=== PATIENT | male | born 1945 | race Caucasian/White ===

== ENCOUNTER 2022-04-05 16:31 | Emergency (ER) | payer MEDICARE, SELFPAY ==
--- NOTE | ~2022-04-05 | XR_ITS ---
EXAMINATION: XR CHEST CLINICAL INFORMATION: Dizziness COMPARISON: 09/13/2010 TECHNIQUE: 2 views of the chest were obtained. FINDINGS: Chronic interstitial opacity. Mild right base atelectasis. There is flattening of the diaphragms and increased retrosternal clear space on the lateral view suggesting emphysema. Normal heart size. Normal pulmonary vascularity. Multilevel degenerative changes of the thoracic spine. XR/XR chest 2V IMPRESSION: Right base atelectasis. No acute pulmonary disease.
--- NOTE | 2022-04-05 17:03 | ECG_ITS ---
Test Reason : DIZZINESS Blood Pressure : / mmHG Vent. Rate : 057 BPM Atrial Rate : 057 BPM P-R Int : 194 ms QRS Dur : 094 ms QT Int : 406 ms P-R-T Axes : 089 047 062 degrees QTc Int : 395 ms Sinus bradycardia Otherwise normal ECG No previous ECGs available Referred By: Generic ED Physician Electronically Signed By:MEI LOZOYA
[2022-04-05 17:11] VITALS: BP 156/66; PULSE 61; RESP 16; TEMP 37.2; O2SAT 95; BMI 24.8
[2022-04-05 17:25] LABS: MANUAL DIFF FLAG NO
[2022-04-05 17:28] LABS: Basophils Percent Auto 0.2 % (0-2); Eosinophils Absolute Auto 0.1 X10*3/uL (0.0-0.4); Eosinophils Percent Auto 1.2 % (0-4); Hematocrit 44.1 % (42.0-52.0); Hemoglobin 15.5 g/dl (14.0-18.0); Imm Gran Abs Auto 0.04 X10*3/uL (0.00-0.03); Imm Gran Pct Auto 0.5 % (0.0-0.4); Lymphocytes Absolute Auto 1.1 X10*3/uL (1.2-4.9); Lymphocytes Percent Auto 12.7 % (20-40); Mean Corpuscular HGB Conc 35.1 g/dl (31.0-36.0); Mean Corpuscular Hemoglobin 31.2 pg (27.0-33.0); Mean Corpuscular Volume 88.7 fL (80.0-98.0); Mean Platelet Volume 9.7 fL (9.4-12.4); Monocytes Absolute Auto 0.9 X10*3/uL (0.1-1.2); Monocytes Percent Auto 10.9 % (2-11); Neutrophils Absolute Auto 6.4 x10*3/uL (2.0-8.3); Neutrophils Percent Auto 74.5 % (45-73); Platelet Count 153 X10*3/uL (160-400); Red Blood Count 4.97 X10*6/uL (4.60-5.80); Red Cell Distribution Width 12.1 % (11.0-16.0); White Blood Count 8.6 X10*3/uL (4.8-10.8)
--- NOTE | 2022-04-05 17:29 | ED.GENADULT ---
HPI - General Adult General Chief complaint: Dizziness Stated complaint: low blood pressure, dizzy Time Seen by Provider: 04/05/22 17:29 Source: patient Mode of arrival: ambulatory Limitations: no limitations History of Present Illness HPI narrative: Patient is a 76 year old male presenting to the emergency department today with episodic dizziness and low sodium. Patient states that he was called and told by his PCPs office that his sodium was low and he should only take half of his diuretic medication. Patient states that he is having intermittent dizziness today and has only had 1 glass of tea to drink today. Patient states that he drinks 7-8 beers a day and has been feeling very anxious lately, looking up a lot of health things on his iPad. Patient denies any current dizziness, lightheadedness, abdominal pain, nausea, vomiting, fever, chills, blurry vision, double vision, loss of vision, chest pain, difficulty breathing, shortness of breath, back pain, night sweats, pain with urination, increased urinary frequency, increased urinary urgency, blood in his urine or stool, syncope or a near syncopal episode, recent trauma or falls, bowel incontinence, bladder incontinence, bowel retention, bladder retention, or any other complaints at this time. Onset (ago): hour(s) Severity: mild Severity scale (1-10): 1 Relieving factors: none Exacerbating factors: none Associated symptoms: denies other symptoms Treatments prior to arrival: none Related Data Previous Rx's Medication Instructions Recorded fluoxetine 10 mg capsule (Prozac) 10 mg PO DAILY #30 caps 04/05/22 Allergies Allergy/AdvReac Type Severity Reaction Status Date / Time No Known Allergies Allergy Unverified 05/02/20 15:44 Review of Systems Constitutional: Constitutional: Reports no additional constitutional complaints, Denies chills, Denies fever(s) and Denies night sweats Eyes: Eyes: Reports no additional eye complaints, Denies blurry vision, Denies change in vision, Denies diplopia, Denies eye discharge, Denies loss of vision and Denies eye pain ENT: Denies dizziness Cardiovascular: Cardiovascular: Reports no additional cardiovascular complaints, Denies chest pain, Denies lightheadedness, Denies Loss of Consciousness and Denies dyspnea Respiratory: Respiratory: Reports no additional respiratory complaints and Denies dyspnea Gastrointestinal: Gastrointestinal: Reports no additional gastrointestinal complaints, Denies abdominal pain, Denies melena, Denies hematochezia, Denies change in bowel habits and Denies change in stool character Genitourinary: Genitourinary: Reports no additional male genitourinary complaints, Denies hematuria, Denies oliguria, Denies difficulty urinating, Denies dysuria, Denies urinary frequency, Denies urinary hesitancy, Denies urinary incontinence and Denies urinary urgency Musculoskeletal: Musculoskeletal: Reports no additional musculoskeletal complaints, Denies numbness and Denies tingling Neurologic: Denies dizziness, Denies loss of vision, Denies numbness and Denies tingling Psychiatric: Psychiatric: Reports no additional psychiatric complaints and Reports anxiety Endocrine: Endocrine: Reports no additional endocrine complaints Hematologic/Lymphatic: Hematologic/Lymphatic: Reports no additional hematologic/lymphatic complaints Allergic/Immunologic: Allergic/Immunologic: Reports no additional allergic/immunologic complaints [facility] Past Medical History Attestation statement: The following information was validated with the patient. Source: old records reviewed Social History Social History Advance Directives: No Advance Directives Information Provided: No Physical Exam ED Vital Signs: Vital Signs - 24 hr 04/05/22 17:11 04/05/22 20:09 04/05/22 20:11 Temperature 98.9 F Pulse Rate 61 47 L 48 L Respiratory Rate 16 16 Blood Pressure 156/66 H 134/67 134/67 Pulse Oximetry 95 97 Oxygen Delivery Method Room Air Room Air 04/05/22 20:12 Temperature Pulse Rate 49 L Respiratory Rate Blood Pressure 149/69 H Pulse Oximetry Oxygen Delivery Method BMI result Body Mass Index 24.8 Const General: cooperative, no acute distress, alert and awake Nutritional Appearance: well nourished Orientation/consciousness: patient oriented x3 Limitations: no limitations [facility] Head: Yes normal to inspection and Yes atraumatic Ears: hearing grossly normal bilaterally and external ears normal General nose exam: Normal external nose present, no nasal discharge noted and no epistaxis Face and sinus: Yes normal facial exam, No abrasion and No laceration Mouth: Normal oral and palatal mucosa present, no drooling and no muffled voice Eyes General: appearance normal, both eyes and all related structures Periorbital: periorbital findings normal Eyelids: Yes eyelids normal Conjunctivae: conjunctivae normal Pupils: Equal, round and reactive pupils present EOM: EOMs intact bilaterally Neck Neck: Yes normal visual inspection, Yes full ROM and Yes no lymphadenopathy Chest Chest palpation & inspection: normal inspection of the chest Resp Effort & Inspection: normal respiratory effort and able to speak in complete sentences Auscultation: clear to auscultation bilaterally Cardio Rate: regular rate Rhythm: regular rhythm GI Inspection: Yes normal to inspection Neuro General: patient oriented x3 and moves all extremities Cranial nerves: Yes Equal, round and reactive pupils present Cognition (Neuro): normal cognition Motor exam (neuro): 5/5 motor strength present throughout Sensory Exam: Normal double simultaneous stimulation for sensation Coordination: [id number] test normal Extrem General: Yes normal to inspection, Yes full ROM and Yes capillary refill normal Psych Appearance: grossly normal Mental Status: mental status grossly normal Affect: Anxious affect present Attitude: cooperative Thought process: Normal thought process present Thought content: Normal thought content present Insight: Good insight present (Psych) Medical Decision Making MDM Narrative Medical decision making narrative: Patient is a 76 year old male presenting to the emergency department today with intermittent dizziness and low sodium. Patient's physical exam showed a fairly anxious individual but was otherwise unremarkable. Patient's blood work showed a decreased sodium of 129 but was otherwise unremarkable. Patient's urine showed no acute process. Patient's EKG was unremarkable. Patient's chest x-ray showed no acute process. I explained my physical exam findings as well as all test results to the patient and the patient's and daughter. I explained that the patient should continue taking his adjusted medications per his PCPs instructions. I explained that due to their concern and the patient's anxious clinical presentation, I will start him on a low dose SSRI anti-anxiety medication that his PCP can follow up with him on. I stressed the importance of the patient having increased electrolyte containing fluid intake.I answered all questions asked by the patient and the patient's and daughter. Patient received PO ativan and IV fluids which he stated helped his symptoms significantly. I stressed the importance of the patient taking his medication as prescribed. I stressed the importance of the patient following up with his primary care provider. I stressed the importance of the patient returning to the emergency department immediately if his symptoms were to worsen or if he were to develop any dizziness, shortness of breath, difficulty breathing, chest pain, blurry vision, loss of vision, nausea, vomiting, abdominal pain, fever, chills, back pain, or any other complaints. Patient and the patient's and daughter verbalized agreement and understanding with this treatment plan and discharge. Differential Diagnosis Differential Diagnosis: anxiety, hyponatremia Medical Records Medical records reviewed: Yes I reviewed the patient's medical records. Lab Data Lab results reviewed: Yes I reviewed the patient's lab results. Result diagrams: 04/05/22 17:20 04/05/22 17:20 Labs: Lab Results 04/05/22 04/05/22 04/05/22 Range/Units 17:20 17:20 17:20 WBC 8.6 (4.8-10.8) X10*3/uL RBC 4.97 (4.60-5.80) X10*6/uL Hgb 15.5 (14.0-18.0) g/dl Hct 44.1 (42.0-52.0) % MCV 88.7 (80.0-98.0) fL MCH 31.2 (27.0-33.0) pg MCHC 35.1 (31.0-36.0) g/dl RDW 12.1 (11.0-16.0) % Plt Count 153 L (160-400) X10*3/uL MPV 9.7 (9.4-12.4) fL Immature Gran % (Auto) 0.5 H (0.0-0.4) % Neut % (Auto) 74.5 H (45-73) % Lymph % (Auto) 12.7 L (20-40) % Dolores % (Auto) 10.9 (2-11) % Eos % (Auto) 1.2 (0-4) % Baso % (Auto) 0.2 (0-2) % Lymph # (Auto) 1.1 L (1.2-4.9) X10*3/uL Dolores # (Auto) 0.9 (0.1-1.2) X10*3/uL Eos # (Auto) 0.1 (0.0-0.4) X10*3/uL Baso # (Auto) 0.0 (0.0-0.2) X10*3/uL Abs Immat Gran (auto) 0.04 H (0.00-0.03) X10*3/uL Absolute Neuts (auto) 6.4 (2.0-8.3) x10*3/uL Absolute Nucleated RBC 0.000 (0.0-0.012) X10*3/uL Nucleated RBC % (auto) 0.0 (0.0-0.2) /100WBC Sodium 129 L (135-145) mmol/L Potassium 4.1 (3.3-5.1) mmol/L Chloride 94 L (96-108) mmol/L Carbon Dioxide 24 (22-29) mmol/L Anion Gap 15 (12-20) BUN 21 H (9-16) mg/dL Creatinine 1.35 (0.5-1.4) mg/dL Estim Creat Clear Calc 51.1 Estimated GFR 52 Random Glucose 167 H (60-115) mg/dL Calcium 9.5 (8.4-10.2) mg/dL Total Bilirubin (0.0-1.0) mg/dL Direct Bilirubin (0.0-0.5) mg/dL AST (5-37) U/L ALT (0-40) U/L Alkaline Phosphatase (39-117) U/L Troponin I High Sens (<3.5-35.0) ng/L Total Protein (6.5-8.0) g/dL Albumin (3.5-5.0) g/dL Urine Color Urine Appearance Urine pH (5.0-8.0) Ur Specific [place] (1.005-1.025) Urine Protein (Neg-Trace) mg/dL Urine Glucose (UA) (Negative) mg/dL Urine Ketones (Negative) mg/dL Urine Blood (Negative) Urine Nitrite (Negative) Ur Leukocyte Esterase (Negative) COVID-19 ([facility]) Negative (Negative) COVID-19 Clin Com See Note 04/05/22 04/05/22 04/05/22 Range/Units 17:20 17:20 18:41 WBC (4.8-10.8) X10*3/uL RBC (4.60-5.80) X10*6/uL Hgb (14.0-18.0) g/dl Hct (42.0-52.0) % MCV (80.0-98.0) fL MCH (27.0-33.0) pg MCHC (31.0-36.0) g/dl RDW (11.0-16.0) % Plt Count (160-400) X10*3/uL MPV (9.4-12.4) fL Immature Gran % (Auto) (0.0-0.4) % Neut % (Auto) (45-73) % Lymph % (Auto) (20-40) % Dolores % (Auto) (2-11) % Eos % (Auto) (0-4) % Baso % (Auto) (0-2) % Lymph # (Auto) (1.2-4.9) X10*3/uL Dolores # (Auto) (0.1-1.2) X10*3/uL Eos # (Auto) (0.0-0.4) X10*3/uL Baso # (Auto) (0.0-0.2) X10*3/uL Abs Immat Gran (auto) (0.00-0.03) X10*3/uL Absolute Neuts (auto) (2.0-8.3) x10*3/uL Absolute Nucleated RBC (0.0-0.012) X10*3/uL Nucleated RBC % (auto) (0.0-0.2) /100WBC Sodium (135-145) mmol/L Potassium (3.3-5.1) mmol/L Chloride (96-108) mmol/L Carbon Dioxide (22-29) mmol/L Anion Gap (12-20) BUN (9-16) mg/dL Creatinine (0.5-1.4) mg/dL Estim Creat Clear Calc Estimated GFR Random Glucose (60-115) mg/dL Calcium (8.4-10.2) mg/dL Total Bilirubin 0.6 (0.0-1.0) mg/dL Direct Bilirubin 0.3 (0.0-0.5) mg/dL AST 22 (5-37) U/L ALT 38 (0-40) U/L Alkaline Phosphatase 80 (39-117) U/L Troponin I High Sens < 3.5 (<3.5-35.0) ng/L Total Protein 6.7 (6.5-8.0) g/dL Albumin 4.5 (3.5-5.0) g/dL Urine Color Yellow Urine Appearance Clear Urine pH 6.0 (5.0-8.0) Ur Specific [place] 1.010 (1.005-1.025) Urine Protein Negative (Neg-Trace) mg/dL Urine Glucose (UA) Negative (Negative) mg/dL Urine Ketones Negative (Negative) mg/dL Urine Blood Negative (Negative) Urine Nitrite Negative (Negative) Ur Leukocyte Esterase Negative (Negative) COVID-19 ([facility]) (Negative) COVID-19 Clin Com Imaging Data Chest x-ray: Attestation: I personally reviewed and interpreted this imaging study as follows: My impression: No acute process. Radiologist's impression: EXAMINATION: XR CHEST CLINICAL INFORMATION: Dizziness COMPARISON: 09/13/2010 TECHNIQUE: 2 views of the chest were obtained. FINDINGS: Chronic interstitial opacity. Mild right base atelectasis. There is flattening of the diaphragms and increased retrosternal clear space on the lateral view suggesting emphysema. Normal heart size. Normal pulmonary vascularity. Multilevel degenerative changes of the thoracic spine. XR/XR chest 2V IMPRESSION: Right base atelectasis. No acute pulmonary disease. Dictated By: Dat Joseph MD Signed By: Electronically signed by Dat Joseph MD 04/05/22 6102 ECG Data Attestation: I personally reviewed and interpreted this ECG as follows: Prior ECG tracings: not available for review Interpretation: Vent. Rate: 057 BPM ? ? Atrial Rate: 057 BPM P-R Int: 194 ms? QRS Dur: 094 ms QT Int: 406 ms ? ? ? P-R-T Axes: 089 047 062 degrees QTc Int: 395 ms ? Sinus bradycardia Otherwise normal ECG No previous ECGs available DD/ [id number] Discharge Plan Discharge Clinical Impression: Acute hyponatremia Patient Disposition: Home, Self-Care Instructions: Hyponatremia (ED) Additional Instructions: Drink plenty of fluids (gatorade, powerade, electrolyte containing liquids) and drink LESS (preferably no) alcohol. Continue taking your medications as prescribed by your PCP, including the halving of your current Triamterene/HCTZ dose and finishing your 20mg Lisinoprils before switching to your 30mg Lisinoprils. Follow up with your primary care provider. Return to the emergency department immediately if your symptoms worsen or if you develop any dizziness, shortness of breath, difficulty breathing, chest pain, blurry vision, loss of vision, nausea, vomiting, abdominal pain, fever, chills, back pain, or any other complaints. Prescriptions: New fluoxetine [Prozac] 10 mg capsule 10 mg PO DAILY Qty: 30 0RF [place]: [facility] [facility] [place] (Call to establish and follow up with a primary care provider. If you already have a primary care provider, please follow up with them. ) [facility] [place] [facility]] (Call to establish and follow up with a primary care provider. If you already have a primary care provider, please follow up with them. ) [facility] [place] [facility]] (Call to establish and follow up with a primary care provider. If you already have a primary care provider, please follow up with them. ) Interventions: ED Discharge Assessment Last Done: 04/05/22 20:28 Discharge Date/Time: 04/05/22 20:29 Print Language: Sinhala
[2022-04-05 17:41] LABS: COVID-19 Test Negative (Negative)
[2022-04-05 17:43] LABS: Anion Gap 15 (12-20); Blood Urea Nitrogen 21 mg/dL (9-16); Calcium 9.5 mg/dL (8.4-10.2); Carbon Dioxide 24 mmol/L (22-29); Chloride 94 mmol/L (96-108); Creatinine Clr Calc Pharmacy 51.1; Estimated Glomerular Filt Rate 52; Glucose Random 167 mg/dL (60-115); Potassium 4.1 mmol/L (3.3-5.1); Sodium 129 mmol/L (135-145)
[2022-04-05 17:44] LABS: Alanine Aminotransferase 38 U/L (0-40); Albumin Level 4.5 g/dL (3.5-5.0); Alkaline Phosphatase 80 U/L (39-117); Aspartate Amino Transferase 22 U/L (5-37); Bilirubin Direct 0.3 mg/dL (0.0-0.5); Bilirubin Total 0.6 mg/dL (0.0-1.0); Total Protein 6.7 g/dL (6.5-8.0)
[2022-04-05 17:48] LABS: Troponin-I High Sensitivity < 3.5 ng/L (<3.5-35.0)
[2022-04-05 18:48] LABS: Appearance Urine Clear; Color Urine Yellow; Glucose Urine UA Negative (Negative); Leukocyte Esterase Urine Negative (Negative); Nitrite Urine Negative (Negative); Urine Blood Negative (Negative); Urine Ketones Negative (Negative); Urine Protein Negative (Neg-Trace)
[2022-04-05] MEDS: 0.9 % Sodium Chloride 1,000 ML 999 ML IV (18:59)
[2022-04-05] MEDS: LORazepam 1 MG TABLET 2 MG PO (18:59)
[2022-04-05 20:09] VITALS: BP 134/67; PULSE 47; RESP 16; O2SAT 97
[2022-04-05 20:11] VITALS: BP 134/67; PULSE 48
[2022-04-05 20:12] VITALS: BP 149/69; PULSE 49
== END 2022-04-05 20:29 | disposition home or self-care (01) ==
PROVIDERS: Physician Assistant Medical; Emergency Provider Emergency Medicine; PCP Student in an Organized Health Care Education/Training Program
DX: R42 Dizziness and giddiness (principal); E87.1 Hypo-osmolality and hyponatremia; R30.0 Dysuria; R00.1 Bradycardia, unspecified; Z20.822 Contact with and (suspected) exposure to COVID-19; Z79.899 Other long term (current) drug therapy
CPT/HCPCS: 36415; 51798; 71046; 80048; 80076; 81003; 84484; 85025; 87635; 93005; 96360; 99284

== ENCOUNTER 2022-04-08 07:18 | Emergency (ER) | payer MEDICARE, SELFPAY ==
--- NOTE | ~2022-04-08 | CT_ITS ---
EXAMINATION: CT HEAD WITHOUT CONTRAST CLINICAL INFORMATION: Dizziness. COMPARISON: None TECHNIQUE: Contiguous axial imaging was performed from the skull base to vertex without intravenous administration of contrast. This CT examination was performed using dose optimization techniques as appropriate, variously including the following: *Automated exposure control *Adjustment of mA and/or kV according to patient size (this includes techniques or standardized protocols for targeted exams where dose is matched to indication/reason for exam; i.e. extremities or head) *Use of iterative reconstruction technique DLP: 631 mGy-cm FINDINGS: There is atherosclerotic calcification of cavernous carotid and vertebral arteries. There appears to be subtle mild, patchy hypoattenuation in supratentorial white matter and possibly involving the nate as well, likely sequela of chronic mild microangiopathy. The guerra-white matter differentiation is maintained. No evidence of an acute major vascular territory infarction. No intracranial hemorrhage, extra-axial fluid collection, focal mass effect or midline shift. The cerebellar tonsils are in normal position. No significant parenchymal volume loss. No hydrocephalus. Mucus retention cyst of the inferior right maxillary sinus. Otherwise, the visualized paranasal sinuses, mastoid air cells and middle ear cavities are well aerated. The orbits and globes are unremarkable. The skull base is normal. The temporomandibular joints are normal. CT/CT head/brain wo con IMPRESSION: No acute imaging abnormalities. Specifically, no evidence of intracranial hemorrhage or acute major vascular territory infarction.
[2022-04-08 07:24] VITALS: BP 179/76; PULSE 55; RESP 18; TEMP 36.6; BMI 24.8
[2022-04-08 07:35] LABS: MANUAL DIFF FLAG NO
[2022-04-08 07:49] LABS: Basophils Absolute Auto 0.1 X10*3/uL (0.0-0.2); Basophils Percent Auto 0.6 % (0-2); Eosinophils Absolute Auto 0.1 X10*3/uL (0.0-0.4); Eosinophils Percent Auto 1.3 % (0-4); Hematocrit 46.1 % (42.0-52.0); Hemoglobin 16.1 g/dl (14.0-18.0); Imm Gran Abs Auto 0.04 X10*3/uL (0.00-0.03); Imm Gran Pct Auto 0.5 % (0.0-0.4); Lymphocytes Percent Auto 12.9 % (20-40); Mean Corpuscular HGB Conc 34.9 g/dl (31.0-36.0); Mean Corpuscular Hemoglobin 31.1 pg (27.0-33.0); Mean Platelet Volume 10.3 fL (9.4-12.4); Monocytes Absolute Auto 0.7 X10*3/uL (0.1-1.2); Monocytes Percent Auto 9.4 % (2-11); Neutrophils Absolute Auto 5.8 x10*3/uL (2.0-8.3); Neutrophils Percent Auto 75.3 % (45-73); Platelet Count 165 X10*3/uL (160-400); Red Blood Count 5.18 X10*6/uL (4.60-5.80); White Blood Count 7.8 X10*3/uL (4.8-10.8)
[2022-04-08 07:58] LABS: Anion Gap 16 (12-20); Blood Urea Nitrogen 15 mg/dL (9-16); Calcium 9.5 mg/dL (8.4-10.2); Carbon Dioxide 24 mmol/L (22-29); Chloride 97 mmol/L (96-108); Estimated Glomerular Filt Rate > 60; Glucose Random 186 mg/dL (60-115); Sodium 133 mmol/L (135-145)
--- NOTE | 2022-04-08 11:53 | ECG_ITS ---
Test Reason : DIZZINESS Blood Pressure : / mmHG Vent. Rate : 045 BPM Atrial Rate : 045 BPM P-R Int : 200 ms QRS Dur : 084 ms QT Int : 448 ms P-R-T Axes : 000 034 046 degrees QTc Int : 387 ms Sinus bradycardia Otherwise normal ECG When compared with ECG of 05-APR-2022 17:09, Heart rate has decreased Referred By: Macie Amato Electronically Signed By:MEI LOZOYA
--- NOTE | 2022-04-08 12:16 | ED.DIZZY ---
HPI - Dizziness General Chief Complaint: Dizziness Stated Complaint: dizzy Time Seen by Provider: 04/08/22 09:20 Source: patient Mode of arrival: ambulatory History of Present Illness HPI Narrative: 76-year-old male w/PMHx hypertension, presenting to the ED complaining of lightheadedness/feeling off balance since last night. Admits presented to ED for similar symptoms on 04/05, workup showed hyponatremia, was discharged on new low-dose Prozac and instructed to take half of his previously prescribed diuretic. States initially felt better when discharged from the ED. Denies associated headache, vision change/loss, CP/SOB, abdominal pain, nausea, vomiting, weakness, numbness/tingling MD elicited complaint: lightheadedness Onset (ago): day(s) Related Data Previous Rx's Medication Instructions Recorded meclizine 25 mg tablet 25 mg PO TID PRN dizziness #14 tabs 04/08/22 Allergies Allergy/AdvReac Type Severity Reaction Status Date / Time No Known Allergies Allergy Unverified 05/02/20 15:44 Review of Systems Review of Systems: Constitutional: No Fever, No Chills, No Fatigue, No Malaise ENT/Mouth: No Ear Pain, No Nasal Congestion, No Sinus Pain, No Hoarseness, No sore throat, No Rhinorrhea, No Swallowing Difficulty Eyes: No Eye Pain, No Swelling, No Redness, No Vision Changes Cardiovascular: No Chest Pain, No SOB, No Dyspnea on Exertion, No Orthopnea, No Edema Respiratory: No Cough, No Sputum, No Dyspnea Gastrointestinal: No Nausea, No Vomiting, No Diarrhea, No Constipation, No Abdominal pain Genitourinary: No irregular bleeding, No Dysuria, No Urinary Frequency, No Hematuria, No Flank Pain, No Urinary Flow Changes, No Hesitancy Musculoskeletal: No joint pain, No Myalgias, No Joint Swelling Skin: No Skin Lesions, No rash Neuro: No Weakness, No Numbness, No Paresthesias, No Loss of Consciousness, + lightheaded, No Headache Yes all other systems are reviewed and are negative Constitutional: Constitutional: Reports as per HPI Neurologic: Denies Abnormal speech present [facility], [facility] Past Medical History Attestation statement: The following information was validated with the patient. Social History Social History Advance Directives: No Advance Directives Information Provided: Yes Physical Exam Vital Signs: Vital Signs: Last Vital Signs Temp 98 F 04/08/22 07:24 Pulse 48 L 04/08/22 15:42 Resp 18 04/08/22 12:27 BP 155/68 H 04/08/22 15:42 O2 Del Method 04/08/22 07:24 BMI result Body Mass Index 24.8 Const: General: cooperative, healthy appearing and no acute distress Orientation/consciousness: patient oriented x3 Limitations: no limitations HEENT: Head: Yes normal to inspection and Yes atraumatic Ears: hearing grossly normal bilaterally General nose exam: Normal external nose present Face and sinus: Yes normal facial exam Mouth: Normal oral and palatal mucosa present Throat: Yes posterior oropharynx normal, Yes tonsils normal, Yes uvula midline, No abnormal tonsil and No uvular edema Eyes: General: appearance normal, both eyes and all related structures Pupils: Equal, round and reactive pupils present EOM: EOMs intact bilaterally Neck: Neck: Yes normal visual inspection and Yes no meningeal signs Resp: Effort & Inspection: normal respiratory effort and no respiratory distress Auscultation: clear to auscultation bilaterally and no rales Cardio: Rate: regular rate Heart sounds: S1 normal heart sound present and S2 normal heart sound present GI: Inspection: Yes normal to inspection Palpation (GI): Soft to palpation, nontender, no guarding and not rigid : General: Yes no CVA tenderness Back/Spine/Pelvis: Back: no CVA tenderness Skin: Rashes: no rashes Wounds: no wounds Neuro: General: patient oriented x3, gait normal, tone normal, no meningeal signs and no focal motor deficits Cranial nerves: Yes CN's II-XII intact bilaterally and Yes Equal, round and reactive pupils present Cognition (Neuro): normal cognition Speech: No Abnormal speech present Gait exam (Neuro): Normal gait present Motor exam (neuro): 5/5 motor strength present throughout, Pronator motor function not present and no tremor noted Coordination: [id number] test normal Romberg Test: Negative Extrem: Other: 1+ bilateral LE pitting edema General: Yes normal to inspection and Yes edema Course Course Course Narrative: -no leukocytosis. H&H stable. Mild hyponatremia to 133 improved from priors > will discontinue previously prescribed Prozac due to risk of worsening hyponatremia 1245--troponin negative. UA negative Previous x-ray from 04/[address] head/brain wo con IMPRESSION: No acute imaging abnormalities. Specifically, no evidence of intracranial hemorrhage or acute major vascular territory infarction. -1410--on re-evaluation patient denies dizziness at present. -1600--orthostatic vital signs negative. Patient is asymptomatic on re-evaluation. Ambulating in the ED with steady gait without assistance. Spoke with patient, daughter, and and instructed to discontinue previously prescribed Prozac, and continue to half his diuretic and call PCP in the morning. Recommended close PCP follow-up/repeat labs in 5-7 days. MDM - Dizziness MDM Narrative Medical decision making narrative: 76-year-old male w/PMHx hypertension, presenting to the ED complaining of lightheadedness/feeling off balance since last night. On exam mild bradycardia to 55, NAD/nontoxic appearing, no focal neuro deficits, ambulating with steady gait, no ataxia. Concern for metabolic abnormalities/hyponatremia vs orthostasis vs BPPV vs ?Subacute CVA. Lower suspicion for cervical dissection Plan: EKG, labs, UA, head CT, gentle IVF, re-evaluate, orthostatic vital signs Differential Diagnosis Differential diagnosis: Likely adverse reaction to drug, benign paroxysmal positional vertigo and orthostatic hypotension Medical Records Attestation: I reviewed the patient's medical records. Lab Data Attestation: I reviewed the patient's lab results. Result diagrams: 04/08/22 07:30 04/08/22 07:30 Labs: Lab Results 04/08/22 04/08/22 04/08/22 Range/Units 07:30 07:30 07:30 WBC 7.8 (4.8-10.8) X10*3/uL RBC 5.18 (4.60-5.80) X10*6/uL Hgb 16.1 (14.0-18.0) g/dl Hct 46.1 (42.0-52.0) % MCV 89.0 (80.0-98.0) fL MCH 31.1 (27.0-33.0) pg MCHC 34.9 (31.0-36.0) g/dl RDW 12.0 (11.0-16.0) % Plt Count 165 (160-400) X10*3/uL MPV 10.3 (9.4-12.4) fL Immature Gran % (Auto) 0.5 H (0.0-0.4) % Neut % (Auto) 75.3 H (45-73) % Lymph % (Auto) 12.9 L (20-40) % [place] % (Auto) 9.4 (2-11) % Eos % (Auto) 1.3 (0-4) % Baso % (Auto) 0.6 (0-2) % Lymph # (Auto) 1.0 L (1.2-4.9) X10*3/uL [place] # (Auto) 0.7 (0.1-1.2) X10*3/uL Eos # (Auto) 0.1 (0.0-0.4) X10*3/uL Baso # (Auto) 0.1 (0.0-0.2) X10*3/uL Abs Immat Gran (auto) 0.04 H (0.00-0.03) X10*3/uL Absolute Neuts (auto) 5.8 (2.0-8.3) x10*3/uL Absolute Nucleated RBC 0.000 (0.0-0.012) X10*3/uL Nucleated RBC % (auto) 0.0 (0.0-0.2) /100WBC Sodium 133 L (135-145) mmol/L Potassium 4.0 (3.3-5.1) mmol/L Chloride 97 (96-108) mmol/L Carbon Dioxide 24 (22-29) mmol/L Anion Gap 16 (12-20) BUN 15 (9-16) mg/dL Creatinine 1.13 (0.5-1.4) mg/dL Estim Creat Clear Calc 61.0 Estimated GFR > 60 Random Glucose 186 H (60-115) mg/dL Calcium 9.5 (8.4-10.2) mg/dL Magnesium 1.7 (1.6-2.6) mg/dL Total Bilirubin 0.6 (0.0-1.0) mg/dL Direct Bilirubin 0.3 (0.0-0.5) mg/dL AST 20 (5-37) U/L ALT 37 (0-40) U/L Alkaline Phosphatase 88 (39-117) U/L Troponin I High Sens < 3.5 (<3.5-35.0) ng/L B-Natriuretic Peptide (<100) pg/mL Total Protein 7.1 (6.5-8.0) g/dL Albumin 4.6 (3.5-5.0) g/dL Urine Color Urine Appearance Urine pH (5.0-8.0) Ur Specific [place] (1.005-1.025) Urine Protein (Neg-Trace) mg/dL Urine Glucose (UA) (Negative) mg/dL Urine Ketones (Negative) mg/dL Urine Blood (Negative) Urine Nitrite (Negative) Ur Leukocyte Esterase (Negative) 04/08/22 04/08/22 Range/Units 12:26 13:04 WBC (4.8-10.8) X10*3/uL RBC (4.60-5.80) X10*6/uL Hgb (14.0-18.0) g/dl Hct (42.0-52.0) % MCV (80.0-98.0) fL MCH (27.0-33.0) pg MCHC (31.0-36.0) g/dl RDW (11.0-16.0) % Plt Count (160-400) X10*3/uL MPV (9.4-12.4) fL Immature Gran % (Auto) (0.0-0.4) % Neut % (Auto) (45-73) % Lymph % (Auto) (20-40) % [place] % (Auto) (2-11) % Eos % (Auto) (0-4) % Baso % (Auto) (0-2) % Lymph # (Auto) (1.2-4.9) X10*3/uL [place] # (Auto) (0.1-1.2) X10*3/uL Eos # (Auto) (0.0-0.4) X10*3/uL Baso # (Auto) (0.0-0.2) X10*3/uL Abs Immat Gran (auto) (0.00-0.03) X10*3/uL Absolute Neuts (auto) (2.0-8.3) x10*3/uL Absolute Nucleated RBC (0.0-0.012) X10*3/uL Nucleated RBC % (auto) (0.0-0.2) /100WBC Sodium (135-145) mmol/L Potassium (3.3-5.1) mmol/L Chloride (96-108) mmol/L Carbon Dioxide (22-29) mmol/L Anion Gap (12-20) BUN (9-16) mg/dL Creatinine (0.5-1.4) mg/dL Estim Creat Clear Calc Estimated GFR Random Glucose (60-115) mg/dL Calcium (8.4-10.2) mg/dL Magnesium (1.6-2.6) mg/dL Total Bilirubin (0.0-1.0) mg/dL Direct Bilirubin (0.0-0.5) mg/dL AST (5-37) U/L ALT (0-40) U/L Alkaline Phosphatase (39-117) U/L Troponin I High Sens (<3.5-35.0) ng/L B-Natriuretic Peptide 157 H (<100) pg/mL Total Protein (6.5-8.0) g/dL Albumin (3.5-5.0) g/dL Urine Color Yellow Urine Appearance Clear Urine pH 7.5 (5.0-8.0) Ur Specific [place] 1.010 (1.005-1.025) Urine Protein Negative (Neg-Trace) mg/dL Urine Glucose (UA) Negative (Negative) mg/dL Urine Ketones Negative (Negative) mg/dL Urine Blood Negative (Negative) Urine Nitrite Negative (Negative) Ur Leukocyte Esterase Negative (Negative) Discharge Plan Discharge Clinical Impression: Episodic lightheadedness Patient Disposition: Home, Self-Care Instructions: Lightheadedness (ED) Additional Instructions: Your blood work was reassuring/improved today in the emergency department. Her head CT was unremarkable. DISCONTINUE TAKING PREVIOUSLY PRESCRIBED PROZAC CONTINUE TO HALF YOUR DIURETIC Call your primary care doctor tomorrow to make an appointment, it is recommended you have repeat labs in 5-7 days Take meclizine as needed for dizziness as this seemed to help you in the emergency department today. If symptoms persist/worsen, become constant, have headache, chest pain or shortness of breath return to the ED Prescriptions: New meclizine 25 mg tablet 25 mg PO TID PRN (Reason: dizziness) Qty: 14 0RF Discontinued fluoxetine [Prozac] 10 mg capsule 10 mg PO DAILY Qty: 30 0RF
[2022-04-08] MEDS: Meclizine HCl 25 MG TABLET PO (12:18)
[2022-04-08 12:27] VITALS: BP 143/64; PULSE 48; RESP 18
[2022-04-08] MEDS: 0.9 % Sodium Chloride 1,000 ML 999 ML IV (12:28)
[2022-04-08 12:34] LABS: Alanine Aminotransferase 37 U/L (0-40); Albumin Level 4.6 g/dL (3.5-5.0); Alkaline Phosphatase 88 U/L (39-117); Aspartate Amino Transferase 20 U/L (5-37); Bilirubin Direct 0.3 mg/dL (0.0-0.5); Bilirubin Total 0.6 mg/dL (0.0-1.0); Magnesium 1.7 mg/dL (1.6-2.6); Total Protein 7.1 g/dL (6.5-8.0)
[2022-04-08 12:36] LABS: Appearance Urine Clear; Color Urine Yellow; Glucose Urine UA Negative (Negative); Leukocyte Esterase Urine Negative (Negative); Nitrite Urine Negative (Negative); PH 7.5 (5.0-8.0); Urine Blood Negative (Negative); Urine Ketones Negative (Negative); Urine Protein Negative (Neg-Trace)
[2022-04-08 12:42] LABS: Troponin-I High Sensitivity < 3.5 ng/L (<3.5-35.0)
[2022-04-08 13:38] LABS: B Type Natriuretic Peptide 157 pg/mL (<100)
[2022-04-08 15:42] VITALS: BP 155/68; PULSE 48
== END 2022-04-08 17:43 | disposition home or self-care (01) ==
PROVIDERS: Physician Assistant; Emergency Provider Emergency Medicine; PCP Student in an Organized Health Care Education/Training Program
DX: R42 Dizziness and giddiness (principal); R06.02 Shortness of breath; E87.1 Hypo-osmolality and hyponatremia; Z79.899 Other long term (current) drug therapy
CPT/HCPCS: 36415; 70450; 80048; 80076; 81003; 83735; 83880; 84484; 85025; 93005; 96360; 96361; 99284

== ENCOUNTER → 2022-05-13 08:02 | Outpatient (BNVA) | payer MEDICARE, SELFPAY | PROVIDERS: PCP Student in an Organized Health Care Education/Training Program; Referring Provider Student in an Organized Health Care Education/Training Program; Visit Provider Internal Medicine | DX: K52.9 Noninfective gastroenteritis and colitis, unspecified (principal); R63.4 Abnormal weight loss; Z68.23 Body mass index [BMI] 23.0-23.9, adult; F17.210 Nicotine dependence, cigarettes, uncomplicated | CPT/HCPCS: 99202 ==

== ENCOUNTER 2022-05-18 13:03 | Day surgery (SDC) | payer MEDICARE, SELFPAY ==
--- NOTE | 2022-05-15 08:42 | P.CONAN_ITS ---
Documented by User: Salina Moon NP 05/15/22 08:44 HPI - Anesthesia Eval Consult details Narrative: 76yo M for Colonoscopy PMFSH Active Problems Active Problems: All Active Problems (Updated 05/13/22 @ 09:17 by Apolonia Madrigal MD) Smoker (Acute) Weight loss (Acute) Chronic diarrhea (Acute) Past Medical History Medical History (Updated 05/18/22 @ 13:05 by Kimberly Hill RN) Depression Hypercholesteremia Hypertension Vertigo Family History Family History (Updated 05/13/22 @ 08:27 by Antwon Motley) Mother Diabetes 1.5, managed as type 2 Social History Social History (Updated 05/13/22 @ 08:25 by Antwon Motley) Household Members: Significant Other Alcohol intake: former Patient Tobacco Use Status: Current everyday Tobacco user Tobacco use type: Cigarette Cigarette Packs Per Day: 1 Cigarettes Per Day: 20 Are you DNR?: No Advance Directives: No Advance Directives Information Provided: Yes Nutrition Risks: No Nutritional Risk Meds Allergies Allergy/AdvReac Type Severity Reaction Status Date / Time No Known Allergies Allergy Verified 05/13/22 08:22 Home Medications Medication Instructions Recorded Confirmed Last Taken Type amlodipine 10 mg tablet 10 mg PO DAILY 05/13/22 05/18/22 05/18/22 History atenolol 50 mg tablet 50 mg PO DAILY 05/13/22 05/18/22 05/18/22 History cholecalciferol (vitamin D3) 50 50 mcg PO DAILY 05/13/22 05/18/22 Unknown History mcg (2,000 unit) capsule fluoxetine 10 mg capsule 10 mg PO DAILY 05/13/22 05/18/22 05/18/22 History hydrochlorothiazide 25 mg tablet 25 mg PO DAILY 05/13/22 05/18/22 Unknown History lisinopril 30 mg tablet 30 mg PO DAILY 05/13/22 05/18/22 05/18/22 History simvastatin 40 mg tablet 40 mg PO DAILY 05/13/22 05/18/22 Unknown History Exam Exam Date and Time: May 15, 2022 0842 Pertinent Lab Results Pertinent Lab Results: Laboratory Tests 04/08/22 04/08/22 07:30 07:30 WBC 7.8 Hgb 16.1 Hct 46.1 Plt Count 165 Sodium 133 L Potassium 4.0 Chloride 97 Carbon Dioxide 24 BUN 15 Creatinine 1.13 Assessment and Plan Assessment Anesthesia Assessment: Chart Reviewed Documented by User: Amita Charles MD 05/18/22 13:26 [facility] Past Medical History Medical History (Updated 05/18/22 @ 13:05 by Kimberly Hill RN) Depression Hypercholesteremia Hypertension Vertigo Family History Family History (Updated 05/13/22 @ 08:27 by Antwon Motley) Mother Diabetes 1.5, managed as type 2 Family history of problems with anesthesia: No Surgical History History of Problems with Anesthesia: No Social History Social History (Updated 05/13/22 @ 08:25 by Antwon Motley) Household Members: Significant Other Alcohol intake: former Patient Tobacco Use Status: Current everyday Tobacco user Tobacco use type: Cigarette Cigarette Packs Per Day: 1 Cigarettes Per Day: 20 Are you DNR?: No Advance Directives: No Advance Directives Information Provided: Yes Nutrition Risks: No Nutritional Risk Meds Allergies Allergy/AdvReac Type Severity Reaction Status Date / Time No Known Allergies Allergy Verified 05/13/22 08:22 Home Medications Medication Instructions Recorded Confirmed Last Taken Type amlodipine 10 mg tablet 10 mg PO DAILY 05/13/22 05/18/22 05/18/22 History atenolol 50 mg tablet 50 mg PO DAILY 05/13/22 05/18/22 05/18/22 History cholecalciferol (vitamin D3) 50 50 mcg PO DAILY 05/13/22 05/18/22 Unknown History mcg (2,000 unit) capsule fluoxetine 10 mg capsule 10 mg PO DAILY 05/13/22 05/18/22 05/18/22 History hydrochlorothiazide 25 mg tablet 25 mg PO DAILY 05/13/22 05/18/22 Unknown History lisinopril 30 mg tablet 30 mg PO DAILY 05/13/22 05/18/22 05/18/22 History simvastatin 40 mg tablet 40 mg PO DAILY 05/13/22 05/18/22 Unknown History Exam Airway Mallampati Class: III TM Dist: >3cm Neck ROM: Full Heart: rrr Lungs: cta Assessment and Plan Assessment Anesthesia Assessment: Anesthesia Plan Discussed Final Anesthetic Review Family History of Problems with Anesthesia: No History of Problems with Anesthesia: No NPO: Yes ASA Class: III Final Preanesthetic Review: No Changes in Pt Med Stat, Meds/Allgs Chart Reviewed and Consent Obtained/Reviewed Patient Risk: Intermediate Procedure Risk: Intermediate Anesthetic Plan Anesthetic Plan: MAC: Disposition: Standard PACU
[2022-05-18] MEDS: Lactated Ringers 1,000 ML 100 ML IVCONT (13:26)
--- NOTE | 2022-05-18 13:38 | P.OP_ITS ---
Operative Note Operative Note Date of Service: 05/18/22 Narrative: Procedure: Colonoscopy Indication: Chronic diarrhea, weight loss Endoscopist: Apolonia Madrigal MD Anesthesia Provider: Dr Amita Gutierres Anesthesia type: MAC Instrument: Olympus [id number]-[id number] Consent: Indication, risks vs benefits, and alternatives were discussed with the patient who gave written informed consent to proceed. EKG, pulse, pulse oximetry and blood pressure were monitored throughout the procedure. Please see anesthesia flowsheet. Procedure: The patient was brought to the procedure room and placed in the left lateral decubitus position. IV medications were administered by the anesthesia provider in attendance. A digital rectal exam was performed which was [normal] [abnormal due to finding of hemorrhoids, anal tag, anal fistula]. The colonoscope was then inserted through the anus and advanced through the colon to the cecum at 80 cm. Mucosa was carefully examined under high definition white light as the instrument was slowly withdrawn in a retrograde panoramic fashion. Retroflexion was performed in rectum. The procedure was somewhat difficult. There were no immediate obvious complications. The quality of the prep was BBPS: 3+3+3 = excellent Withdrawal time 62 minutes. Limitations: No limitations. Findings: Mucosa: Normal to cecum. Single AVM seen in ascending colon which was not bleeding despite agitation with water jet. Protruding lesions: * 3 sessile polyps of size 5-8 mm in cecum. Cold snare polypectomy was performed. The polyps were completely removed and retrieved. * 2 sessile polyps of size 7-9 mm in ascending colon. Cold snare polypectomy was performed. The polyps were completely removed and retrieved. After cold snare polypectomy of 9 mm polyp, more than expected bleeding was noted even after a few minutes of observation. One endoclip was applied with immediate hemostasis. * 9 sessile polyp of size 2-8 mm in transverse colon. Cold snare polypectomy was performed. The polyps were completely removed and retrieved. * 1 semipedunculated polyp of size 15 mm in sigmoid colon. Hot snare polypectomy was performed. The polyp was completely removed and retrieved. * 1 pedunculated polyp of size 20-22 mm in sigmoid colon. Hot snare polypectomy was performed and the polyp was removed at the base of the stalk. The polyp was completely removed and retrieved. One endoclip was applied for post- polypectomy bleeding prophylaxis. * Large semi-pedunculated villous appearing polyp was seen in rectum measuring at least 11 cm - extending from 5 cm to 16 cm from anal verse. Multiple cold forceps biopsies were taken. * Small polyps were seen in descending colon, sigmoid colon and rectum were seen but not removed as patient had already had prolonged anesthesia of >1.5h and will be brought back for repeat colonoscopy after a short interval. * Medium external hemorrhoids without stigmata of recent bleeding. Impression: 1. Ascending colon AVM (nonbleeding). 2. Total of 16 polyps removed from cecum, ascending, transverse and sigmoid colon. 3. Large 11 cm villous appearing rectal polyp 4. External hemorrhoids Recommendations: - Strongly suspect patient's diarrhea and electrolyte abnormalities are secondary to large rectal polyp (McKittrick-Gonzales syndrome) - He will be referred to general surgery for consideration of surgical resection. - Loperamide 2mg TID has been prescribed for symptomatic management in the meantime. - Repeat colonoscopy in 1 year. - Early screening at 40 years for all first degree relatives.
--- NOTE | 2022-05-18 13:38 | MHC.SHP ---
Pre-Procedural Eval Section A Date of Service: 05/18/22 The patient is an INPATIENT: No The History & Physical has been completed within 30 days and I have reviewed it.: Yes Section B Chief Complaint: Diarrhea, weight loss Allergies: Allergies Allergy/AdvReac Type Severity Reaction Status Date / Time No Known Allergies Allergy Verified 05/13/22 08:22 Plan Diagnosis/Plan: Unchanged I have reviewed the history and physical and performed a pertinent physical examination on my patient. No changes have occurred unless specified.
[2022-05-18 13:42] VITALS: BP 146/66; PULSE 66; RESP 18; TEMP 36.6; O2SAT 99
[2022-05-18 13:44] VITALS: BMI 23.4
[2022-05-18 15:47] VITALS: BP 130/60; PULSE 59; RESP 16; TEMP 36.8; O2SAT 98
[2022-05-18 16:02] VITALS: BP 136/61; PULSE 55; RESP 16; TEMP 37.1; O2SAT 98
== END 2022-05-18 17:00 | disposition home or self-care (01) ==
PROVIDERS: PCP Student in an Organized Health Care Education/Training Program; Visit Provider Internal Medicine
PROC: 0DJD8ZZ Inspection of Lower Intestinal Tract, Via Natural or Artificial Opening Endoscopic (ICD-10-PCS; CPT 45378; principal; 2022-05-18 13:30)
DX: K52.9 Noninfective gastroenteritis and colitis, unspecified (principal); R63.4 Abnormal weight loss; Z68.23 Body mass index [BMI] 23.0-23.9, adult; D12.0 Benign neoplasm of cecum; D12.2 Benign neoplasm of ascending colon; D12.3 Benign neoplasm of transverse colon; D12.5 Benign neoplasm of sigmoid colon; D12.8 Benign neoplasm of rectum; K64.8 Other hemorrhoids; K55.20 Angiodysplasia of colon without hemorrhage; K64.4 Residual hemorrhoidal skin tags; I10 Essential (primary) hypertension; E78.5 Hyperlipidemia, unspecified; F32.A Depression, unspecified; R42 Dizziness and giddiness; F17.210 Nicotine dependence, cigarettes, uncomplicated; Z79.899 Other long term (current) drug therapy
CPT/HCPCS: 45385; 45380; 88305; J2250

== ENCOUNTER → 2022-05-27 08:11 | Outpatient (BNVA) | payer MEDICARE, SELFPAY | PROVIDERS: PCP Student in an Organized Health Care Education/Training Program; Visit Provider Internal Medicine | DX: D12.8 Benign neoplasm of rectum (principal); E87.8 Other disorders of electrolyte and fluid balance, not elsewhere classified; K52.9 Noninfective gastroenteritis and colitis, unspecified; F17.210 Nicotine dependence, cigarettes, uncomplicated | CPT/HCPCS: 99212 ==

== ENCOUNTER 2023-09-02 09:48 | Outpatient (REF) | payer MEDICARE, SELFPAY ==
[2023-09-02 11:56] LABS: MANUAL DIFF FLAG NO
[2023-09-02 12:10] LABS: Basophils Absolute Auto 0.1 X10*3/uL (0.0-0.2); Basophils Percent Auto 0.8 % (0-2); Eosinophils Absolute Auto 0.1 X10*3/uL (0.0-0.4); Eosinophils Percent Auto 1.7 % (0-4); Hematocrit 44.7 % (42.0-52.0); Imm Gran Abs Auto 0.02 X10*3/uL (0.00-0.03); Imm Gran Pct Auto 0.3 % (0.0-0.4); Lymphocytes Absolute Auto 1.6 X10*3/uL (1.2-4.9); Lymphocytes Percent Auto 25.6 % (20-40); Mean Corpuscular HGB Conc 33.6 g/dl (31.0-36.0); Mean Corpuscular Hemoglobin 29.5 pg (27.0-33.0); Mean Platelet Volume 10.4 fL (9.4-12.4); Monocytes Absolute Auto 0.8 X10*3/uL (0.1-1.2); Neutrophils Absolute Auto 3.8 x10*3/uL (2.0-8.3); Neutrophils Percent Auto 59.6 % (45-73); Platelet Count 287 X10*3/uL (160-400); Red Blood Count 5.08 X10*6/uL (4.60-5.80); White Blood Count 6.3 X10*3/uL (4.8-10.8)
[2023-09-02 12:19] LABS: Estimated Average Glucose 157 mg/dL; Hemoglobin A1c % 7.1 % (<6.0)
[2023-09-02 12:21] LABS: Alanine Aminotransferase 37 U/L (0-40); Albumin Level 4.3 g/dL (3.5-5.0); Alkaline Phosphatase 104 U/L (39-117); Anion Gap 13 (12-20); Aspartate Amino Transferase 18 U/L (5-37); Bilirubin Total 0.6 mg/dL (0.0-1.0); Blood Urea Nitrogen 10 mg/dL (9-16); Calcium 9.7 mg/dL (8.4-10.2); Carbon Dioxide 26 mmol/L (22-29); Chloride 105 mmol/L (96-108); Cholesterol 111 mg/dL (<200); Estimated Glomerular Filt Rate > 60; Glucose Random 104 mg/dL (60-115); HDL Cholesterol 28 mg/dL (>40); LDL Cholesterol Calculated 68 mg/dL (<100); Potassium 4.5 mmol/L (3.3-5.1); Sodium 139 mmol/L (135-145); Total Protein 7.4 g/dL (6.5-8.0); Triglycerides 79 mg/dL (<150)
[2023-09-02 12:57] LABS: Glucose Random 103 mg/dL (60-115)
== END 2023-09-02 09:49 | disposition home or self-care (01) ==
LOC: HO.CHCLDS 09:48
PROVIDERS: Visit Provider Internal Medicine
DX: I10 Essential (primary) hypertension (principal); D12.8 Benign neoplasm of rectum; E11.65 Type 2 diabetes mellitus with hyperglycemia
CPT/HCPCS: 36415; 80053; 80061; 82947; 83036; 84443; 85025

== ENCOUNTER 2025-04-11 09:45 | Outpatient (REF) | payer MEDICARE, SELFPAY ==
--- OUTSIDE RECORDS SUMMARY | 2025-04-11 09:00 | XMS_ITS | Encounter Summary ---
Author Organization [employer] Address 75 [facility] 7 [place] [address] Care Team Providers Care Laundry Sorter Name Role Phone Dionte Enriquez MD Primary Care Provider +1 [phone] Romain Blake PharmD Unavailable Unavail able Reason for Referral * Consultation (Routine) - Pending Review Specialty Diagnoses / Procedures Referred By Urszula suggs Referred To Contact Ophthalmology Diagnoses Type 2 diabetes mellitus with hyperglycemia, without long-term current use of insulin ([facility]) Dionte Enriquez MD [address] [place] [address] Phone: tel: fax: Referral ID Status Reason Start Date Expiration Date Visits Requested Visits Authorized [id number] Pending Review Specialty Services Required 04/11/2025 04/11/2026 1 1 * Consultation (Routine) - Pending Review Specialty Diagnoses / Procedures Referred By Urszula suggs Referred To Contact Audiology Diagnoses Decreased hearing of both ears Dionte Enriquez MD [address] [place] [address] Phone: tel: fax: Referral ID Status Reason Start Date Expiration Date Visits Requested Visits Authorized [id number] Pending Review Specialty Services Required 04/11/2025 04/11/2026 1 1 * Consultation (Routine) - Pending Review Specialty Diagnoses / Procedures Referred By Urszula suggs Referred To Contact Podiatry Diagnoses Type 2 diabetes mellitus with hyperglycemia, without long-term current use of insulin (CMS/HCC) Dionte Enriquez MD [address] [place] [address] Phone: tel: fax: Referral ID Status Reason Start Date Expiration Date Visits Requested Visits Authorized [id number] Pending Review Specialty Services Required 04/11/2025 04/11/2026 1 1 Encounter Details Date Type Department Care Team (Late st Contact Info) Description 04/11/2025 9:00 AM EDT Office Visit [facility] MED & PEDS [address] [place] [address] Dionte Enriquez MD [address] [place] [address] Type 2 diabetes mellitus with hyperglycemia, without long-term current use of insulin (CMS/HCC) (Primary Dx); Essential hypertension; Hypercholesterolemia; Bilateral impacted cerumen; Decreased hearing of both ears; Dry skin Social History Tobacco Use Types Packs/Day Years Used Date Smoking Tobacco: Every Day Cigarettes 1 58 Smokeless Tobacco: Never Depression Answer Date Recorded Patient Health Questionnaire-9 Score 0 04/11/2025 Patient Health Questionnaire-9 Score 0 04/11/2025 Last PHQ-9: Questionnaire Data Not on file 0 04/11/2025 Housing Stability Answer Date Recorded What is your housing situation today? I have elliott eber 04/11/[address] you li ve. Do you have problems with any of the following? None of the above 04/11/2025 Food Insecurity Answer Date Recorded Within the past 12 months, y ou worried that your food would run out before you got money to buy more: Never True 04/11/2025 Within the past 12 months,th e food you bought just didn't last and you didn't have enough money to get more: Never True Transportation Answer Date Recorded In the past 12 months, has l ack of transportation kept you from medical appts, meetings, work or from getting things needed for daily living? No 04/11/2025 Utilities Answer Date Recorded In the past 12 months, has t he electric, gas, oil or water company threatened to shut off services in your home? No 04/11/2025 Depression Answer Date Recorded Patient Health Questionnaire-2 Score 0 04/11/2025 Internet Access Answer Date Recorded Internet Access Q1 Yes 04/11/2025 Internet Access Q2 Not on file 04/11/2025 Sex and Gender Information Value Date Recorded Sex Assigned at Male 06/15/2022 10:19 AM EDT Legal Sex Male 10:19 AM EDT Gender Identity Male 06/15/2022 10:19 AM EDT Sexual Orientation Straight 06/15/2022 10 :19 AM EDT documented as of this encounter Last Filed Vital Signs Vital Sign Reading Time Taken Comments Blood Pressure 167/73 04/11/2025 9:10 AM EDT Pulse 74 04/11/2025 9:10 AM EDT Temperature 36.5 C (97.7 F) 04/11/2025 9:10 AM EDT Respiratory Rate 20 04/11/2025 9:10 AM EDT Oxygen Saturation 98% 04/11/2025 9:10 AM EDT Inhaled Oxygen Concentration - - Weight 81.6 kg (180 lb) 04/11/2025 9:10 AM EDT Height 180.3 cm (5' 11 ) 04/11/2025 9:10 AM EDT Body Mass Index 25.1 04/11/2025 9:10 AM EDT documented in this encounter Functional Status * Over the past 2 weeks, how often have you been bothered by any of the following problems? Question Answer Date of Assessment Author Patient Health Questionnaire-2 Score 0 03/17 9:45 AM EDT Mary Rene MA * Little interest or pleasure in doing things Answer Date of Assessment Author Not at all 04/11/2025 9:45 AM EDT Sky Rene MA * Feeling down, depressed, or hopeless Answer Date of Assessment Author Not at all 04/11/2025 9:45 AM EDT Sky Rene MA * Trouble falling or staying asleep, or sleeping too much Answer Date of Assessment Author Not at all 04/11/2025 9:45 AM EDT Sky Rene MA * Feeling tired or having little energy Answer Date of Assessment Author Not at all 04/11/2025 9:45 AM EDT Sky Rene MA * Poor appetite or overeating Answer Date of Assessment Author Not at all 04/11/2025 9:45 AM EDT Sky Rene MA * Feeling bad about yourself - or that you are a failure or have let yourself or your family down Answer Date of Assessment Author Not at all 04/11/2025 9:45 AM EDT Sky Rene MA * Trouble concentrating on things, such as reading the newspaper or watching television Answer Date of Assessment Author Not at all 04/11/2025 9:45 AM EDT Sky Rene MA * Moving or speaking so slowly that other people could have noticed? Or the opposite - being so fidgety or restless that you have been moving around a lot more than usual. Answer Date of Assessment Author Not at all 04/11/2025 9:45 AM EDT Sky Rene MA * Thoughts that you would be better off or hurting yourself in some way Answer Date of Assessment Author Not at all 04/11/2025 9:45 AM EDT Sky Rene MA * Patient Health Questionnaire-9 Score Answer Date of Assessment Author 0 04/11/2025 9:45 AM Sky Guillaume MA documented as of this encounter Plan of Treatment Upcoming Encounters Date Type Department Care Team (Late st Contact Info) Description 04/18/2025 2:30 PM EDT Clinical Support [facility] MED & PEDS [address] [place] [address] Scheduled Orders Name Type Priority Associated Diagnoses Orde r Schedule Albumin, Random Urine W/Creatinine Lab Routine Type 2 diabetes mellitus with hyperglycemia, without long-term current use of insulin ([facility]) Expected: 04/11/2025 (Approximate), Expires: 04/11/2026 Lipid Panel, Standard Lab Routine Type 2 diabetes mellitus with hyperglycemia, without long-term current use of insulin ([facility]) Expected: 04/11/2025 (Approximate), Expires: 04/11/2026 Scheduled Referrals Name Type Priority Associated Diagnoses Order Schedule Referral to Podiatry Outpatient Referral Routine Type 2 diabetes mellitus with hyperglycemia, without long-term current use of insulin ([facility]) Expected: 04/11/2025 (Approximate), Expires: 04/11/2026 Referral to Audiology Outpatient Referral Routine Decreased hearing of both ears Expected: 04/11/2025 (Approximate), Expires: 04/11/2026 Referral to Ophthalmology Outpatient Referral Routine Type 2 diabetes mellitus with hyperglycemia, without long-term current use of insulin ([facility]) Expected: 04/11/2025 (Approximate), Expires: 04/11/2026 documented as of this encounter Goals Goal Patient Goal Type Associated Problems Recent Progress Patient-Stated? Author Blood Pressure < 140/90 Blood Pressure 167/73( 025 9:10 AM EDT) No Romain Blake, PharmD documented as of this encounter Procedures Procedure Name Priority Date/Time Associated Diagnosis Comments POCT GLUCOSE Routine 04/11/2025 9:28 AM EDT Type 2 diabetes mellitus with hyperglycemia, without long-term current use of insulin ([facility]) POCT GLYCATED HEMOGLOBIN, TOTAL Routine 04/11/2025 9:27 AM EDT Type 2 diabetes mellitus with hyperglycemia, without long-term current use of insulin ([facility]) documented in this encounter Results * POCT Glucose (04/11/2025 9:28 AM EDT) Glucose Blood, POC 78 60 - 200 mg/dL QC Media Lot # [id number] Lot# Expiration Date Comment:random Blood Capillary blood specimen / Unknown 04/11/2025 9:28 AM EDT Dionte Enriquez MD POINT OF CARE TEST ENTER/ED IT ORDERABLES Final Result * (ABNORMAL) POCT HGB A1C (04/11/2025 9:27 AM EDT) Hemoglobin A1C 7.4(A) 4.0 - 5.7 % QC Media Lot # [id number] Lot# Expiration Date 944, Blood 04/11/2025 9:27 AM EDT Result [facility] Dionte Enriquez MD POINT OF CARE TEST ENTER/ED IT ORDERABLES Final Result documented in this encounter Visit Diagnoses Diagnosis Type 2 diabetes mellitus with hyperglycemia, without long-term current use of insulin ([facility])- Primary Essential hypertension Unspecified essential hypertension Hypercholesterolemia Pure hypercholesterolemia Bilateral impacted cerumen Impacted cerumen Decreased hearing of both ears Dry skin Other symptoms involving skin and integumentary tissues documented in this encounter Additional Health Concerns Assessment Noted Time PHQ-9 Depression Total Score: 0 04/11/20 9:45 AM EDT documented as of this encounter Care Teams Laundry Sorter Relationship Specialty Start Date End Date Dionte Enriquez MD [address] [place] [address] PCP - General Internal Medicine 08/21/20 Romain Blake, JesusitaD [address] [place] [address] Pharmacist Internal Medicine 09/04/22 documented as of this encounter
--- OUTSIDE RECORDS SUMMARY | 2025-04-11 10:24 | XMS_ITS | Encounter Summary ---
Author Organization [employer] Address [address] [facility] 7t [place] [address] Care Team Providers Care Job Counselor Name Role Phone Dionte Enriquez MD Primary Care Provider [phone]- [phone] Romain Blake PharmD Unavailable Unavail able Encounter Details Date Type Department Care Team (Late st Contact Info) Description 09/10/2022 Orders Only [facility] MED & PEDS [address] [place], [place] [phone] Romain Blake, PharmD Essential hypertension (Primary Dx) Social History Tobacco Use Types Packs/Day Years Used Date Smoking Tobacco: Never Assessed Sex and Gender Information Value Date Recorded Sex Assigned at Male 06/15/2022 10:19 AM EDT Legal Sex Male 10:19 AM EDT Gender Identity Male 06/15/2022 10:19 AM EDT Sexual Orientation Straight 06/15/2022 10 :19 AM EDT COVID-19 Exposure Response Date Recorded In the last 10 days, have yo u been in contact with someone who was confirmed or suspected to have Coronavirus/COVID-19? No / Unsure 09/04/2022 11:35 AM EST documented as of this encounter Plan of Treatment Upcoming Encounters Date Type Department Care Team (Late st Contact Info) Description 04/18/2025 2:30 PM EDT Clinical Support [facility] MED & PEDS [address] [place] [address] documented as of this encounter Goals Goal Patient Goal Type Associated Problems Recent Progress Patient-Stated? Author Blood Pressure < 140/90 Blood Pressure 167/73( 025 9:10 AM EDT) No Romain Blake, PharmD documented as of this encounter Visit Diagnoses Diagnosis Essential hypertension- Primary Unspecified essential hypertension documented in this encounter Care Teams Job Counselor Relationship Specialty Start Date End Date Dionte Enriquez MD [address] [facility] [place] [address] PCP - General Internal Medicine 08/21/20 Romain Blake PharmD 505 [place] [address] Pharmacist Internal Medicine 09/04/22 documented as of this encounter
--- OUTSIDE RECORDS SUMMARY | 2025-04-11 10:24 | XMS_ITS | Encounter Summary ---
Author Organization [employer] Address 75 [facility] 7 [place] [address] Care Team Providers Care Police Reserves Commander Name Role Phone Dionte Enriquez MD Primary Care Provider [phone]- [phone] Romain Blake PharmD Unavailable Unavail able Encounter Details Date Type Department Care Team (Late st Contact Info) Description 08/28/2022 Orders Only [facility] MED & PEDS [address] [place] [address] Christine Duong LPN Social History Tobacco Use Types Packs/Day Years Used Date Smoking Tobacco: Never Assessed Sex and Gender Information Value Date Recorded Sex Assigned at Male 06/15/2022 10:19 AM EDT Legal Sex Male 10:19 AM EDT Gender Identity Male 06/15/2022 10:19 AM EDT Sexual Orientation Straight 06/15/2022 10 :19 AM EDT documented as of this encounter Plan of Treatment Upcoming Encounters Date Type Department Care Team (Late st Contact Info) Description 04/18/2025 2:30 PM EDT Clinical Support [facility] MED & PEDS [address] [place] [address] documented as of this encounter Visit Diagnoses Not on filedocumented in this encounter Care Teams Police Reserves Commander Relationship Specialty Start Date End Date Dionte Enriquez MD [address] [place] [address] PCP - General Internal Medicine 08/21/20 Romain Blake, PharmD [address] [place] [address] Pharmacist Internal Medicine 09/04/22 documented as of this encounter
--- OUTSIDE RECORDS SUMMARY | 2025-04-11 10:25 | XMS_ITS | Encounter Summary ---
Author Organization [employer] Address [address] [facility] 7t [place] [address] Care Team Providers Care Wound/Ostomy Nurse Name Role Phone Dionte Enriquez MD Primary Care Provider +1- [phone] Romain Blake PharmD Unavailable Unavail able Encounter Details Date Type Department Care Team (Late Contact Info) Description 12/06/2023 Orders Only [facility] MED & PEDS [address] [place], [place] [phone] Dionte Enriquez MD [address] [place] [address] Dry skin Social History Tobacco Use Types Packs/Day Years Used Date Smoking Tobacco: Every Day Cigarettes 1 58 Smokeless Tobacco: Never Sex and Gender Information Value Date Recorded Sex Assigned at Male 06/15/2022 10:19 AM EDT Legal Sex Male 10:19 AM EDT Gender Identity Male 06/15/2022 10:19 AM EDT Sexual Orientation Straight 06/15/2022 10 :19 AM EDT documented as of this encounter Plan of Treatment Upcoming Encounters Date Type Department Care Team (Late st Contact Info) Description 04/18/2025 2:30 PM EDT Clinical Support [facility] MED & PEDS [address] [place] [address] documented as of this encounter Goals Goal Patient Goal Type Associated Problems Recent Progress Patient-Stated? Author Blood Pressure < 140/90 Blood Pressure 167/73( 025 9:10 AM EDT) No Romain Blake, PharmD documented as of this encounter Visit Diagnoses Diagnosis Dry skin Other symptoms involving skin and integumentary tissues documented in this encounter Care Teams Wound/Ostomy Nurse Relationship Specialty Start Date End Date Dionte Enriquez MD [address] [place] [address] PCP - General Internal Medicine 08/21/20 Romain Blake, Vicky [address] [place] [address] Pharmacist Internal Medicine 09/04/22 documented as of this encounter
--- OUTSIDE RECORDS SUMMARY | 2025-04-11 10:25 | XMS_ITS | Encounter Summary ---
Author Organization [employer] Address [address] [facility] [address] 7[address] [place] [address] Care Team Providers Care Torch Straightener And Heater Name Role Phone Dionte Enriquez MD Primary Care Provider +1 [phone] Romain Blake PharmD Unavailable Unavail able Encounter Details Date Type Department Care Team (Latest Contact Info) Description 04/11/2025 Travel Social History Tobacco Use Types Packs/Day Years Used Date Smoking Tobacco: Every Day Cigarettes 1 58 Smokeless Tobacco: Never Depression Answer Date Recorded Patient Health Questionnaire-9 Score 0 04/11/2025 Patient Health Questionnaire-9 Score 0 04/11/2025 Last PHQ-9: Questionnaire Data Not on file 0 04/11/2025 Housing Stability Answer Date Recorded What is your housing situation today? I have elliott velázquez 04/11/[address] you li [...] AM EDT documented as of this encounter Functional Status * Over the [...] of Assessment Author 0 04/11/2025 9:45 AM EDT Sky Rene MA documented as of this encounter Plan of Treatment Upcoming Encounters Date Type Department Care Team (Late st Contact Info) Description 04/18/2025 2:30 PM EDT Clinical Support [facility] MED & PEDS [address] [place] [address] documented as of this encounter Goals Goal Patient Goal Type Associated Problems Recent Progress Patient-Stated? Author Blood Pressure < 140/90 Blood Pressure 167/73( 025 9:10 AM EDT) No Romain Blake, PharmD documented as of this encounter Visit Diagnoses Not on filedocumented in this encounter Additional Health Concerns Assessment Noted Time PHQ-9 Depression Total Score: 0 04/11/20 9:45 AM EDT documented as of this encounter Care Teams Torch Straightener And Heater Relationship Specialty Start Date End Date Dionte Enriquez MD [address] [place] [address] PCP - General Internal Medicine 08/21/20 Romain Blake, PharmD [address] [place] [address] Pharmacist Internal Medicine 09/04/22 documented as of this encounter
--- OUTSIDE RECORDS SUMMARY | 2025-04-11 10:25 | XMS_ITS | Encounter Summary ---
Author Organization [employer] Address [address] [facility] 7t [place] [address] Care Team Providers Care A And P Technician Name Role Phone Dionte Enriquez MD Primary Care Provider +1- [phone] Romain Blake PharmD Unavailable Unavail able Reason for Visit * Reason Onset Date Comments Chart Prep 04/10/2025 Encounter Details Date Type Department Care Team ([facility] st Contact Info) Description 04/10/2025 Telephone [facility] CHC MED & PEDS [address] [place], [place] [phone] Dionte Enriquez MD [address] [place] [address] Chart Prep Social History Tobacco Use Types Packs/Day Years [...] AM EDT documented as of this encounter Miscellaneous Notes * Telephone Encounter - Nita Medrano MA - 04/10/2025 1:39 PM EDT Chart Prep Labs: not done Images: done Referrals: complete Vaccines due: due Screenings: eye exam and foot exam Overdue care gaps: A1c, Glucose, SDOH, and PHQ-9 documented in this encounter Plan of Treatment Upcoming Encounters Date Type Department Care Team (Late st Contact Info) Description 04/18/2025 2:30 PM EDT Clinical Support [facility] MED & PEDS [address] [place] [address] documented as of this encounter Goals Goal Patient Goal Type Associated Problems Recent Progress Patient-Stated? Author Blood Pressure < 140/90 Blood Pressure 167/73( 025 9:10 AM EDT) No Romain Blake, PharmD documented as of this encounter Visit Diagnoses Not on filedocumented in this encounter Additional Health Concerns Assessment Noted Time PHQ-9 Depression Total Score: 5 08/30/19 25 10:10 AM EST documented as of this encounter Care Teams A And P Technician Relationship Specialty Start Date End Date Dionte Enriquez MD [address] [place] [address] PCP - General Internal Medicine 08/21/20 Romain Blake, PharmD [address] [place] [address] Pharmacist Internal Medicine 09/04/22 documented as of this encounter
--- OUTSIDE RECORDS SUMMARY | 2025-04-11 10:25 | XMS_ITS | Encounter Summary ---
Author Organization [employer] Address 75 [facility] 7 [place] [address] Care Team Providers Care Mirror Installer Name Role Phone Dionte Enriquez MD Primary Care Provider [phone]- [phone] Romain Blake PharmD Unavailable Unavail able Reason for Visit * Reason Onset Date Comments Appointment Request 01/01/2025 Encounter Details Date Type Department Care Team ([facility] st Contact Info) Description 01/01/2025 Telephone [facility] MEDICINE [address] [place] [address] Dionte Enriquez MD [address] [place] [address] Appointment Request Social History Tobacco Use Types Packs/Day Years Used Date Smoking Tobacco: Every Day Cigarettes 1 58 Smokeless Tobacco: Never Depression Answer Date Recorded Patient Health Questionnaire-9 Score 5 08/30/2024 Patient Health Questionnaire-9 Score 5 08/30/2024 Last PHQ-9: Questionnaire Data Not on file 0 08/30/2024 Depression Answer Date Recorded Patient Health Questionnaire-2 Score 4 08/30/2024 Sex and Gender Information Value Date Recorded Sex Assigned at Male 06/15/2022 10:19 AM EDT Legal Sex Male 10:19 AM EDT Gender Identity Male 06/15/2022 10:19 AM EDT Sexual Orientation Straight 06/15/2022 10 :19 AM EDT documented as of this encounter Miscellaneous Notes * Telephone Encounter - Alisia Martini - 01/01/2025 12:45 PM EDT Tc from pt requesting appt for follow up BP Contact pt at [phone] documented in this encounter Plan of Treatment Upcoming Encounters Date Type Department Care Team (Late st Contact Info) Description 04/18/2025 2:30 PM EDT Clinical Support [facility] MED & PEDS [address] [place] [address] documented as of this encounter Goals Goal [...] documented as of this encounter Care Teams Mirror Installer Relationship Specialty Start Date End Date Dionte Enriquez MD [address] [place] [address] PCP - General Internal Medicine 08/21/20 Romain Blake, PharmD [address] [place] [address] Pharmacist Internal Medicine 09/04/22 documented as of this encounter
--- OUTSIDE RECORDS SUMMARY | 2025-04-11 10:25 | XMS_ITS | Encounter Summary ---
Author Organization [employer] Address [address] [facility] 7 [place] [address] Care Team Providers Care Boiler Shop Supervisor Name Role Phone Dionte Enriquez MD Primary Care Provider +1- [phone] Romain Blake PharmD Unavailable Unavail able Reason for Visit * Reason Onset Date Comments Medication Question 12/06/2023 Encounter Details Date Type Department Care Team (Late Contact Info) Description 12/06/2023 Telephone [facility] MEDICINE [address] [place] [address] Dionte Enriquez MD [address] [place] [address] Medication Question Social History Tobacco Use Types Packs/Day Years [...] encounter Miscellaneous Notes * Telephone Encounter - Jose Nieto - 12/06/2023 11:49 AM EDT Tc from pharmacy requesting the frequency of the medication ammonium lactate (Lac-Hydrin) 12 % cream in order to bill the insurance documented in this encounter Plan of Treatment Upcoming Encounters Date Type Department Care Team ([facility] Contact Info) Description 04/18/2025 2:30 PM EDT Clinical Support [facility] CHC MED & PEDS [address] [place] [address] documented as of this encounter Goals Goal Patient Goal Type Associated Problems Recent Progress Patient-Stated? Author Blood Pressure < 140/90 Blood Pressure 167/73( 025 9:10 AM EDT) No Romain Blake, PharmD documented as of this encounter Visit Diagnoses Not on filedocumented in this encounter Care Teams Boiler Shop Supervisor Relationship Specialty Start Date End Date Dionte Enriquez MD [address] [place] [address] PCP - General Internal Medicine 08/21/20 Romain Blake, PharmD [address] [place] [address] Pharmacist Internal Medicine 09/04/22 documented as of this encounter
--- OUTSIDE RECORDS SUMMARY | 2025-04-11 10:25 | XMS_ITS | Clinical Summary ---
Author Organization [facility] Address [address] [facility] [address] [place] [address] Care Team Providers Care Iv Rn Name Role Phone Dionte Enriquez MD Primary Care Provider [phone] Romain Blake PharmD Unavailable Unavail able Allergies No known active allergies Medications glucose blood (FREESTYLE LITE) test strip Use 1 by To Skin route every day 2 Active loperamide (Imodium) 2 MG capsule TAKE 1 CAPSULE BY MOUTH THREE TIMES DAILY NEEDED FOR LOOSE STOOLS 2 Active meclizine (Antivert) 25 MG tablet Take 25 mg by mouth if needed in the morning, at noon, and at bedtime. 2 Active cholecalciferol (Vitamin D-3) 50 MCG (1999) capsuleIndication s:Vitamin D deficiency TAKE 1 CAPSULE BY MOUTH EVERY DAY 30 capsule 1 3 Active escitalopram (Lexapro) 5 MG tabletIndications :Anxiety Take 1 tablet (5 mg) by mouth in the morning. 30 tablet 2 4 Active ammonium lactate (Lac-Hydrin) 12 % creamIndications: Dry skin To use once a day after shower. 140 g 3 4 Active amLODIPine (Norvasc) 10 MG tabletIndications :Essential hypertension Take 1 tablet (10 mg) by mouth in the morning. 90 tablet 3 5 Active lisinopril 30 MG tabletIndications :Primary hypertension Take 1 tablet (30 mg) by mouth Once per day. 90 tablet 3 5 Active simvastatin (Zocor) 40 MG tabletIndications :Hypercholesterol emia Take 1 tablet (40 mg) by mouth Once per day. 90 tablet 3 5 Active carbamide peroxide (Debrox) 6.5 % otic solutionIndicatio ns:Bilateral impacted cerumen Administer 5-10 drops into affected ear(s) 2 times daily for 4 days. 30 mL 5 04/15/20 25 Active Active Problems Problem Noted Date Diagnosed Date Colon polyps 09/04/2022 Essential hypertension 08/28/2022 Hypercholesterolemia 08/28/2022 Hyponatremia 09/17/2021 Type 2 diabetes mellitus 11/19/2020 Vitamin D deficiency 11/19/2020 Encounters Date Type Department Care Team Description 04/11/2025 9:00 AM EDT Office Visit [facility] [address] [place] [address] Dionte Enriquez MD Type 2 diabetes mellitus with hyperglycemia, without long-term current use of insulin ([facility]) (Primary Dx); Essential hypertension; Hypercholesterolemia; Bilateral impacted cerumen; Decreased hearing of both ears; Dry skin 04/11/2025 Travel 04/10/2025 Telephone [facility] [address] [place] [address] Dionte Enriquez MD Chart Prep from Last 3 Months Immunizations Immunization Administration Dates Next Due Influenza High-dose Quadrivalent Preservative Fr ee 09/10/2022 Influenza, trivalent, adjuvanted 06/19/2024 Pneumococcal Conjugate PCV 20 09/02/2023 Tdap 04/12/2024 Social History Tobacco Use Types Packs/Day Years [...] Orientation Straight 06/15/2022 10 :19 AM EDT Last Filed Vital Signs Vital Sign Reading [...] Mass Index 25.1 04/11/2025 9:10 AM EDT Plan of Treatment Upcoming Encounters Date Type Department Care Team (Late st Contact Info) Description 04/18/2025 2:30 PM EDT Clinical Support [facility] [address] [place] [address] Health Maintenance Due Date Last Done Comments Eye Exam 1955 Lung Cancer Screening 1997 Zoster Vaccines (1 of 2) 1997 Diabetes: Urine Protein Screening 11/18/2021 11/18/2020 RSV Patients and Patients Aged 60 years or older (1 - 1-dose 75+ series) 2022 Lipid Panel 09/02/2024 09/02/2023, 10/24/2020 COVID-19 Vaccine ( season) 2024 06/19/2024, 09/07/2021, 11/26/2020, Additional history exists Influenza Vaccine (#1) 2025 06/19/2024, 2022 Diabetes: Hemoglobin A1C 07/12/2025 025, 08/30/2024, 04/12/2024, Additional history exists Alcohol/Substance Use Screening 08/30/2025 08/30/2024 Tobacco Screening 08/30/2025 08/30/2024 Depression Screening 04/11/2026 04/11/2025, 04/11/20 Diabetes: Foot Exam 04/11/2026 04/11/2025, 12/06/2023, 12/06/2023, Additional history exists SDOH Screening 04/11/2026 04/11/2025 DTaP/Tdap/Td Vaccines (2 - Td or Tdap) 04/12/2034 04/12/2024 Hepatitis C Screening Completed 09/15/2021 Pneumococcal Vaccine: 50+ Years Completed 09/02/2023 HIB Vaccines Aged Out No longer eligi ble based on patient's age to complete this topic HPV Vaccines Aged Out No longer eligi ble based on patient's age to complete this topic Hepatitis A Vaccines Aged Out No long er eligible based on patient's age to complete this topic Hepatitis B Vaccines Aged Out No long er eligible based on patient's age to complete this topic IPV Vaccines Aged Out No longer eligi ble based on patient's age to complete this topic Meningococcal B Vaccine Aged Out No l onger eligible based on patient's age to complete this topic Meningococcal Vaccine Aged Out No félix sj eligible based on patient's age to complete this topic RSV under 20 months Aged Out No longe r eligible based on patient's age to complete this topic Rotavirus Vaccines Aged Out No longer eligible based on patient's age to complete this topic Goals Goal Patient Goal Type Associated Problems Recent Progress Patient-Stated? Author Blood Pressure < 140/90 Blood Pressure 167/73(08/27/2 025 9:10 AM EDT) No Romain Blake, Vicky Procedures Procedure Name Priority Date/Time Associated Diagnosis Comments POCT GLUCOSE Routine 04/11/2025 9:28 AM EDT Type 2 diabetes mellitus with hyperglycemia, without long-term current use of insulin (CMS/HCC) POCT GLYCATED HEMOGLOBIN, TOTAL Routine 04/11/2025 9:27 AM EDT Type 2 diabetes mellitus with hyperglycemia, without long-term current use of insulin (CMS/HCC) LIPID PANEL, STANDARD Routine 09/02/2023 9:51 AM EST Essential hypertension Adenomatous polyp of rectum Type 2 diabetes mellitus with hyperglycemia, without long-term current use of insulin (CMS/HCC) ZZZ HISTORICAL HEPATITIS C AB W/REFL TO HCV RNA, QN, PCR Routine 09/15/2021 10:38 AM EST ALBUMIN, RANDOM URINE W/CREATININE Routine 11/18/2020 9:15 AM EDT from Last 3 Months or Most Recently Relevant to Health Maintenance Results * POCT Glucose (04/11/2025 9:28 AM [...] Media Lot # [id number] Lot# Expiration Date [id number] Blood 04/11/2025 9:27 AM EDT us Dionte Enriquez MD POINT OF CARE TEST ENTER/ED IT ORDERABLES Final Result * (ABNORMAL) Lipid Panel, Standard (09/02/2023 9:51 AM EST) Triglycerides 79 <150 mg/dL [facility] Comment:Desirable Triglyceri de: less than 150 mg/dLBorderline High Triglyceride 150-199 mg/dLHigh Triglyceride: 200-499 mg/dLVery High Triglyceride: greater than or equal to 5OO mg/dL Cholesterol 111 <200 mg/dL [facility] Comment:Desirable Cholestero l: less than 200 mg/dLBorderline High Cholesterol: 200-239 mg/dLHigh Cholesterol: greater than 239 mg/dL LDL Cholesterol Calculated 68 <100 mg/dL [facility] Comment:Desirable LDL: less than 100 mg/dLNear Optimal/Above Optimal LDL: 110- 129 mg/dLBorderline High LDL: 130-159 mg/dLHigh LDL: 160-189 mg/dLVery High LDL: greater than or equal to 190 mg/dL HDL Cholesterol 28(L) >40 mg/dL [facility] Comment:Desirable HDL: great er than 40 mg/dL Note: This HDL assay may give artificially low results in patients with liver disease. Blood Venous blood specimen / Unknown 09/02/2023 9:51 AM EST 09/02/2023 11:53 AM EST us Dionte Enriquez MD LAB BLOOD ORDERABLES Final Result [facility] [address] [place] [phone] * HEPATITIS C AB W/REFL TO HCV RNA, QN, PCR (09/15/2021 10:38 AM EST) HEPATITIS C ANTIBODY NON-REACT JONAH NON-REACT JONAH [facility] INDEX 0.01 <1.00 [facility] Comment: HCV antibody was non-reactive. There is no laboratory evidence of HCV infection. In most cases, no further action is required. However, if recent HCV exposure is suspected, a test for HCV RNA (test code 94358) is suggested. For additional information please refer to http://education.Koin[employer].Blackboard/faq/CMK70o7 (This link is being provided for informational/ educational purposes only.) 09/15/2021 10:3 8 AM EST Dionte Enriquez MD HISTORICAL/NON ORDERABLE LA BS Final Result Performing Organization Address [facility] Phone Number [facility] [address] * ALBUMIN, RANDOM URINE W/CREATININE (11/18/2020 9:15 AM EDT) Microalbumin Urine 0.6 See Note: mg/dL [facility] Comment: Reference Range: Reference Range Not established Microalb/Creat Ratio 10 <30 mcg/mg creat [facility] Comment: The ADA defines abnormalities in albumin excretion as follows: Category Result (mcg/mg creatinine) Normal <30 Microalbuminuria 30-299 Clinical albuminuria > OR = 300 The ADA recommends that at least two of three specimens collected within a 3-6 month period be abnormal before considering a patient to be within a diagnostic category. Creatinine, Urine 63 20 - 320 mg/dL [facility] 11/18/2020 9:15 AM EDT us Dionte Enriquez MD LAB URINE ORDERABLES Final Result Performing Organization Address [facility] Phone Number [facility] [address] from Last 3 Months or Most Recently Relevant to Health Maintenance Insurance [facility] [employer] H[employer] Care Teams Iv Rn Relationship Specialty Start Date End Date Dionte Enriquez MD [address] [place] [address] PCP - General Internal Medicine 08/21/20 Romain Blake PharmD [address] [place] [address] Pharmacist Internal Medicine 09/04/22
[2025-04-11 15:16] LABS: Cholesterol 118 mg/dL (<200); HDL Cholesterol 28 mg/dL (>40); Triglycerides 95 mg/dL (<150)
[2025-04-11 15:40] LABS: Microalbum/Creatinine Ratio Ur 37.4 ug/mg cr (<30)
== END 2025-04-11 09:46 | disposition home or self-care (01) ==
LOC: HO.CHCLDS 09:45
PROVIDERS: Visit Provider Internal Medicine
DX: E11.65 Type 2 diabetes mellitus with hyperglycemia (principal); R80.9 Proteinuria, unspecified
CPT/HCPCS: 36415; 80061; 82043; 82570